=== PATIENT | female | born 1990 | race Asian ===

== ENCOUNTER 2019-06-15 01:45 | Emergency (ER) | payer SELFPAY ==
[~2019-06-15] VITALS: Ht 167.6 cm; Wt 64.0 kg
[2019-06-15 06:22] VITALS: BP 121/74
== END 2019-06-15 06:23 | disposition home or self-care (01) ==
LOC: ER 01:45
DX: M79.672 Pain in left foot (principal); M25.511 Pain in right shoulder; Z98.890 Other specified postprocedural states; W22.8XXA Striking against or struck by other objects, initial encounter; Y93.89 Activity, other specified; Y92.213 High school as the place of occurrence of the external cause; Y99.8 Other external cause status
CPT/HCPCS: 73030; 73630; 99284